=== PATIENT | female | born 1990 | race Two or more races ===

== ENCOUNTER 2021-01-20 20:00 | Emergency (ER) | payer OTHER ==
[~2021-01-20] VITALS: Ht 162.6 cm; Wt 77.1 kg
[2021-01-20] MEDS ORDERED: LABETALOL 21 MG/1 ML (20:09)
[2021-01-20] MEDS ORDERED: CHILDREN'S ASPI81 MG (20:09)
[2021-01-20] MEDS ORDERED: OBTREX DHA COM1 EACH (20:10)
[2021-01-20] MEDS ORDERED: PERIDEX473 ML PO (21:25)
== END 2021-01-20 21:49 | disposition home or self-care (01) ==
LOC: ER 20:00
DX: O26.892 Other specified pregnancy related conditions, second trimester (principal); S01.522A Laceration with foreign body of oral cavity, initial encounter; W50.0XXA Accidental hit or strike by another person, initial encounter; Y93.89 Activity, other specified; Y92.89 Other specified places as the place of occurrence of the external cause; Y99.8 Other external cause status; Z3A.21 21 weeks gestation of pregnancy

== ENCOUNTER → 2021-03-04 | Outpatient (CLI) | payer OTHER ==
[~2021-03-04] MED LIST: CHILDREN'S ASPI81 MG; LABETALOL 21 MG/1 ML; OBTREX DHA COM1 EACH; PERIDEX473 ML PO
== END | disposition home or self-care (01) ==
LOC: NST 11:46
PROVIDERS: ATTEND Obstetrics & Gynecology Maternal & Fetal Medicine
DX: Z34.83 Encounter for supervision of other normal pregnancy, third trimester (principal)

== ENCOUNTER 2021-04-08 11:12 | Outpatient (CLI) | payer OTHER | END 2021-04-08 11:58 | disposition home or self-care (01) | LOC: NST 11:12 | PROVIDERS: ATTEND Obstetrics & Gynecology | DX: Z34.83 Encounter for supervision of other normal pregnancy, third trimester (principal) ==

== ENCOUNTER 2021-04-22 10:17 | Outpatient (CLI) | payer OTHER | END 2021-04-22 11:05 | disposition home or self-care (01) | LOC: NST 10:17 | PROVIDERS: ATTEND Obstetrics & Gynecology Maternal & Fetal Medicine | DX: Z34.83 Encounter for supervision of other normal pregnancy, third trimester (principal) ==

== ENCOUNTER 2021-05-05 09:28 | Outpatient (CLI) | payer OTHER | END 2021-05-05 10:17 | disposition home or self-care (01) | LOC: NST 09:28 | PROVIDERS: ATTEND Obstetrics & Gynecology Maternal & Fetal Medicine | DX: O16.3 Unspecified maternal hypertension, third trimester (principal) ==

== ENCOUNTER 2021-05-19 10:15 | Inpatient (IN) | payer OTHER ==
[~2021-05-19] VITALS: Ht 162.6 cm; Wt 2.7 kg
[2021-05-19] MEDS ORDERED: PROBIOTIC250 MG PO (12:24)
[2021-05-22] MEDS ORDERED: LABETALOL HCL200 MG (09:05)
[2021-05-24] MEDS ORDERED: KETO10TA2 PO (08:33)
[2021-05-24] MEDS ORDERED: OXYC1TAB9 PO (08:35)
== END 2021-05-24 14:22 | disposition home or self-care (01) | DRG 788 ==
LOC: OB/GYN 05-21 07:03 → O/R 05-21 07:03 → OB/GYN 05-21 10:15
PROVIDERS: ADMIT Obstetrics & Gynecology; ATTEND Obstetrics & Gynecology
PROC: 4A1HXCZ Monitoring of Products of Conception, Cardiac Rate, External Approach (ICD-10-PCS; 2021-05-21)
PROC: 10D00Z1 Extraction of Products of Conception, Low, Open Approach (ICD-10-PCS; principal; 2021-05-21 10:15)
DX: O34.211 Maternal care for low transverse scar from previous cesarean delivery (principal); Z3A.38 38 weeks gestation of pregnancy; Z20.822 Contact with and (suspected) exposure to COVID-19; Z37.0 Single live birth

== ENCOUNTER 2021-05-19 16:11 | Outpatient (CLI) | payer OTHER ==
[~2021-05-19 16:11] MED LIST changes: +PROBIOTIC250 MG PO
== END 2021-05-19 16:35 | disposition home or self-care (01) ==
LOC: NST 16:11
PROVIDERS: ATTEND Obstetrics & Gynecology
DX: Z34.83 Encounter for supervision of other normal pregnancy, third trimester (principal)

== ENCOUNTER 2022-08-25 10:03 | Outpatient (CLI) | payer OTHER ==
[~2022-08-25 10:03] MED LIST changes: +KETO10TA2 PO; +LABETALOL HCL200 MG; +OXYC1TAB9 PO
== END 2022-08-25 11:04 | disposition home or self-care (01) ==
LOC: NST 10:03
PROVIDERS: ATTEND Obstetrics & Gynecology Maternal & Fetal Medicine
DX: Z34.83 Encounter for supervision of other normal pregnancy, third trimester (principal)

== ENCOUNTER 2022-09-02 13:04 | Outpatient (CLI) | payer OTHER | END 2022-09-02 13:33 | disposition home or self-care (01) | LOC: NST 13:04 | PROVIDERS: ATTEND Obstetrics & Gynecology Gynecology | DX: Z34.83 Encounter for supervision of other normal pregnancy, third trimester (principal) ==

== ENCOUNTER 2022-09-09 12:04 | Outpatient (CLI) | payer OTHER ==
[~2022-09-09] VITALS: Ht 160 cm; Wt 83.9 kg
[2022-09-09] MEDS ORDERED: LABETALOL HCL200 MG PO ×2 (12:17→12:18)
== END 2022-09-09 18:30 | disposition home or self-care (01) ==
LOC: OBS/DEL 12:04
PROVIDERS: ATTEND Obstetrics & Gynecology
DX: O10.913 Unspecified pre-existing hypertension complicating pregnancy, third trimester (principal); Z3A.32 32 weeks gestation of pregnancy; Z88.1 Allergy status to other antibiotic agents; Z91.013 Allergy to seafood; Z98.891 History of uterine scar from previous surgery

== ENCOUNTER 2022-09-24 10:27 | Outpatient (CLI) | payer OTHER ==
[~2022-09-24 10:27] MED LIST changes: +LABETALOL HCL200 MG PO
== END 2022-09-24 10:56 | disposition home or self-care (01) ==
LOC: NST 10:27
PROVIDERS: ATTEND Obstetrics & Gynecology Gynecology
DX: Z34.83 Encounter for supervision of other normal pregnancy, third trimester (principal)

== ENCOUNTER 2022-09-29 11:40 | Outpatient (CLI) | payer OTHER | END 2022-09-29 12:30 | disposition home or self-care (01) | LOC: NST 11:40 | PROVIDERS: ATTEND Obstetrics & Gynecology Gynecology | DX: Z34.83 Encounter for supervision of other normal pregnancy, third trimester (principal) ==

== ENCOUNTER 2022-10-12 16:10 | Inpatient (IN) | payer OTHER ==
[~2022-10-12] VITALS: Ht 162.6 cm; Wt 2.3 kg
[2022-10-12] MEDS ORDERED: NIFEDIPINE20 MG PO (16:59)
[2022-10-12] MEDS ORDERED: PRENATAL TABLE1 EAC1 (16:59)
[2022-10-12] MEDS ORDERED: IRON236 MG (17:00)
[2022-10-17] MEDS ORDERED: Procardia Xl 30MG TA PO (10:26)
[2022-10-17] MEDS ORDERED: LABETALOL HCL200 MG PO (10:26)
[2022-10-17] MEDS ORDERED: OXYC1TAB9 PO (10:27)
[2022-10-17] MEDS ORDERED: KETO10TA2 PO (10:28)
== END 2022-10-17 17:31 | disposition home or self-care (01) | DRG 788 ==
LOC: LDR 16:10 → O/R 16:10 → OB/GYN 16:10 → O/R 10-14 13:52 → OB/GYN 10-14 15:47
PROVIDERS: ADMIT Obstetrics & Gynecology; ATTEND Obstetrics & Gynecology
PROC: 4A1HXCZ Monitoring of Products of Conception, Cardiac Rate, External Approach (ICD-10-PCS; 2022-10-12)
PROC: 10D00Z1 Extraction of Products of Conception, Low, Open Approach (ICD-10-PCS; principal; 2022-10-14 15:00)
DX: O10.02 Pre-existing essential hypertension complicating childbirth (principal); O34.211 Maternal care for low transverse scar from previous cesarean delivery; Z3A.37 37 weeks gestation of pregnancy; Z20.822 Contact with and (suspected) exposure to COVID-19